=== PATIENT | male | born 1965 | race American Indian/Alaskan Native ===

== ENCOUNTER 2017-03-19 14:44 | Inpatient (IN) | payer OTHER ==
[2017-03-19 15:32] LABS: Basophils % (Auto) 0.4 % (0.0-1.8); Eosinophils % (Auto) 0.4 % (0.0-4.3); Hematocrit 39.9 % (35.5-45.6); Hemoglobin 13.2 gm/dl (11.8-15.2); Mean Corpuscular HGB Conc 33 % (32-34); Mean Corpuscular Hemoglobin 29 pg (28-32); Mean Corpuscular Volume 88 fl (84-94); Platelet Count 250 K/mm3 (140-440); Red Blood Count 4.51 M/mm3 (3.65-5.03); White Blood Count 9.4 K/mm3 (4.5-11.0)
[2017-03-19 15:37] LABS: Anion Gap 21 mmol/L; BUN/Creatinine Ratio 9.09; Blood Urea Nitrogen 10 mg/dL (9-20); Calcium 8.9 mg/dL (8.4-10.2); Carbon Dioxide 23 mmol/L (22-30); Chloride 101.4 mmol/L (98-107); Glucose 112 mg/dL (75-100); Potassium 4.3 mmol/L (3.6-5.0); Sodium 141 mmol/L (137-145)
[2017-03-19] MEDS ORDERED: TORADOL IV ONE ×2 (21:49→21:50)
[2017-03-19] MEDS ORDERED: NACL 0.9% 1000 ML 1,000 ML IV ONE (21:50)
[2017-03-19] MEDS ORDERED: MORPHINE IV ONE (21:52)
[2017-03-19] MEDS ORDERED: ZOFRAN IV ONE (21:53)
--- NOTE | 2017-03-19 23:05 | XRay Report ---
FINAL REPORT EXAM: XR CHEST ROUTINE 2V HISTORY: CHEST PAIN TECHNIQUE: PA and lateral chest radiographs PRIORS: None. FINDINGS: No mediastinal shift. Cardiac silhouette is not enlarged. No pneumothorax. Left lower lung airspace disease with small effusion. Linear right basilar atelectasis/scarring. No acute skeletal finding. IMPRESSION: Left lower lung airspace disease with small effusion. PA and lateral chest radiographic follow-up to resolution is recommended.
[2017-03-19 23:20] LABS: ISTAT Base Excess -2; ISTAT HCO3 22.6; ISTAT PCO2 36.5 (35-45); ISTAT PO2 62 (80-105); ISTAT SO2 92; ISTAT TCO2 24
--- NOTE | 2017-03-19 23:23 | Emergency Department Report ---
ED Chest Pain HPI - General Chief Complaint: Chest Pain Stated Complaint: CHEST PAIN Time Seen by Provider: 03/19/17 21:27 Source: patient Mode of arrival: Ambulatory Limitations: No Limitations - History of Present Illness Initial Comments: 52-year-old male with no past medical history presents to the ED complaining of chest pain. The pain started 1 day prior to arrival. Patient states he was doing work that required exertion and started having sharp chest pain one hour after. Patient states pain is left sternal area. Pain is intermittent and non radiating. Worse with movement and exertion, improves with rest. Pain is not reproducible. Patient denies: Fever/chills, abdominal pain, nausea/vomiting/ diarrhea, lotion E edema. Patient is a history of GA, history of PE/DVT. MD Complaint: chest pain -: Gradual, days(s) (1) Onset: during rest Pain Location: substernal Pain Radiation: none Severity: moderate Severity scale (0 -10): 8 Quality: tightness Consistency: intermittent Improves With: nothing Worsens With: exertion, inspiration re: denies: nausea, vomting Other Symptoms: denies: cough, fever, rash, acid taste in mouth, palpitations - Related Data Home Medications Medication Instructions Recorded Confirmed Last Taken No Known Home Medications [No 03/19/17 03/19/17 Unknown Reported Home Medications] Allergies Allergy/AdvReac Type Severity Reaction Status Date / Time No Known Allergies Allergy Verified 03/20/17 00:14 Heart Score - HEART Score History: Moderately suspicious EKG: Non-specific Age: 45-65 Risk factors: No known risk factors Troponin: < normal limit HEART Score: 3 - Critical Actions Critical Actions: 0-3 pts:0.9-1.7%risk of adverse cardiac event.Candidate for discharge ED Review of Systems ROS: Stated complaint: CHEST PAIN Other details as noted in HPI Constitutional: denies: chills, fever Eyes: denies: eye pain, eye discharge, vision change ENT: denies: ear pain, throat pain Respiratory: denies: cough, shortness of breath, wheezing Cardiovascular: chest pain. denies: palpitations Endocrine: no symptoms reported Gastrointestinal: denies: abdominal pain, nausea, diarrhea Genitourinary: denies: urgency, dysuria Musculoskeletal: denies: back pain, joint swelling, arthralgia Skin: denies: rash, lesions Neurological: denies: headache, weakness, paresthesias Psychiatric: denies: anxiety, depression Hematological/Lymphatic: denies: easy bleeding, easy bruising ED Past Medical Hx - Past Medical History Previous Medical History?: No - Surgical History Past Surgical History?: No - Social History Smoking Status: Never Smoker Substance Use Type: None - Medications Home Medications: Home Medications Medication Instructions Recorded Confirmed Last Taken Type No Known Home Medications [No 03/19/17 03/19/17 Unknown History Reported Home Medications] ED Physical Exam - General Limitations: No Limitations General appearance: alert, in no apparent distress - Head Head exam: Present: atraumatic, normocephalic - Eye Eye exam: Present: normal appearance - ENT ENT exam: Present: mucous membranes moist - Neck Neck exam: Present: normal inspection - Respiratory Respiratory exam: Present: normal lung sounds bilaterally. Absent: respiratory distress - Cardiovascular Cardiovascular Exam: Present: regular rate, normal rhythm. Absent: systolic murmur, diastolic murmur, rubs, gallop - GI/Abdominal GI/Abdominal exam: Present: soft, normal bowel sounds - Rectal Rectal exam: Present: deferred - Extremities Exam Extremities exam: Present: normal inspection, full ROM. Absent: calf tenderness - Back Exam Back exam: Present: normal inspection - Neurological Exam Neurological exam: Present: alert, oriented X3 - Psychiatric Psychiatric exam: Present: normal affect, normal mood - Skin Skin exam: Present: warm, dry, intact, normal color. Absent: rash ED Course Vital Signs 03/19/17 03/19/17 14:59 19:47 Temperature 99.6 F 97.8 F Pulse Rate 111 H 104 H Respiratory 20 22 Rate Blood Pressure 140/93 Blood Pressure 159/93 [Left] O2 Sat by Pulse 93 90 Oximetry IAN score - Ian Score Age > 65: (0) No Aspirin use within the Past 7 Days: (0) No 3 or more CAD Risk Factors: (0) No 2 or more Angina events in past 24 hrs: (0) No Known CAD with more than 50% Stenosis: (0) No Elevated Cardiac Markers: (0) No ST Deviation Greater than 0.5mm: (0) No IAN Score: 0 ED Medical Decision Making - Lab Data Result diagrams: 03/19/17 15:06 03/19/17 15:06 - EKG Data -: EKG Interpreted by Ok EKG shows normal: sinus rhythm (111), axis (normal ) Rate: tachycardia - Radiology Data Radiology results: report reviewed, image reviewed CTA chest: There is small emboli in the proximal and mid branches of the pulmonary arteries bilaterally. There is no large central or saddle emboli. Bilateral pulmonary emboli. Bilateral lower lobe infiltrates, worse on the left. There is no thoracic aortic aneurysm or dissection. There are probable liver hemangiomas. Dr Ara JURADO - Medical Decision Making 52-year-old male with no past medical history is presenting to the emergency department complaining of chest pain. While in ED pt became oxygen dependant with oxygen saturation of 85%, increased to 98% on 2l nc. PatienT CT scan consistent with PE, and left lower lobe pneumonia. I will start him on heparin gtt and IV antibiotics, pt agrees to plan - Differential Diagnosis dissection, ACS, pneumothorax Critical Care Time: Yes Critical care attestation.: If time is entered above; I have spent that time in minutes in the direct care of this critically ill patient, excluding procedure time. Critical Care Time: 35 ED Disposition Clinical Impression: Chest pain, Pulmonary emboli Disposition: OP ADMIT IP TO THIS HOSP Is pt being admited?: Yes Does the pt Need Aspirin: No Condition: Stable Instructions: Chest Pain (ED) Referrals: PRIMARY CARE, [Primary Care Provider] - 3-5 Days
[2017-03-19] MEDS ORDERED: NACL ONE (23:47)
--- NOTE | 2017-03-20 02:16 | Cat Scan Report ---
FINAL REPORT PROCEDURE: CT ANGIO CHEST TECHNIQUE: Computerized axial tomographic angiography of the chest and pulmonary arteries was performed after the IV injection of iodinated nonionic contrast. The image data was postprocessed using maximum intensity projection (MIP) and 2-dimensional multiplanar reformatted (MPR) techniques. The examination is specifically tailored to the evaluation of the pulmonary arteries per clinical request. HISTORY: Short of breath 786.09, chest pain 786.50, left chest pain with sob COMPARISON: No prior studies are available for comparison. FINDINGS: Heart and pericardium: Normal. Thoracic aorta: Normal. Pulmonary vasculature: There are small emboli in the proximal and mid branches of the pulmonary arteries bilaterally. There is no large central or saddle embolus.. Lymph nodes: No enlarged thoracic lymph nodes. Lungs: There are infiltrates at the lung bases greater on the left. Lungs are well-expanded. There are no effusions.. Pleural space: There are no pneumothoraces.. Musculoskeletal structures: No significant abnormality. Upper abdominal structures: There is a partially imaged enhancing mass in the right lobe of the liver measuring 18 millimeters suggesting hemangioma. There is a larger mass in the left lobe of the liver measuring up to 5 centimeters in diameter demonstrating peripheral enhancement also suggesting hemangioma.. IMPRESSION: Bilateral pulmonary emboli. Bilateral lower lobe infiltrates, worse on the left. There is no thoracic aortic aneurysm or dissection. There are probable liver hemangiomas. Nurse Chester Thompson was notified of these critical findings by telephone at 1:57 a.m. Eastern time. .
[2017-03-20] MEDS ORDERED: LEVAQUIN 750MG/150ML 750 MG/150 ML BAG IV ONE (02:23)
[2017-03-20] MEDS ORDERED: ZOFRAN IV PRN (02:31)
[2017-03-20] MEDS ORDERED: RESTORIL PO PRN (02:47)
[2017-03-20] MEDS: HEPARIN/ 0.45% NACL-25,000 UNIT/500 ML 25,000 UNIT/500 ML BAG IV SCH (02:50)
[2017-03-20 03:33] LABS: Hematocrit 37.6 % (35.5-45.6); Hemoglobin 12.3 gm/dl (11.8-15.2)
[2017-03-20 03:43] LABS: INR 1.12 (0.87-1.13)
[2017-03-20 03:44] LABS: Partial Thromboplastin Time 37.9 Sec. (24.2-36.6)
--- NOTE | 2017-03-20 07:30 | History and Physical Report ---
History of Present Illness Date of examination: 03/20/17 Date of admission: 03/20/17 02:29 Chief complaint: Chief complaint is chest pain, other complaint include shortness of breath History of present illness: History of present illness on, patient is a 52-year-old male who started having precordial chest pain about 24 hours prior to presentation, pain does not radiate and is associated with shortness of breath and worse with movement, there is no history of nausea vomiting and no history of cough fever or chills but there is history of dizziness Past History Past Surgical History: No surgical history Social history: no significant social history Family history: no significant family history Medications and Allergies Allergies Allergy/AdvReac Type Severity Reaction Status Date / Time No Known Allergies Allergy Verified 03/20/17 00:14 Home Medications Medication Instructions Recorded Confirmed Last Taken Type No Known Home Medications [No 03/19/17 03/19/17 Unknown History Reported Home Medications] Active Meds: Active Medications Heparin Sodium/Sodium Chloride (Heparin/ 0.45% Nacl-25,000 Unit/500 Ml) 25,000 unit in 500 mls @ 30 mls/hr IV TITR MILAGROS; 1,500 UNITS/HR PRN Reason: Protocol Last Admin: 03/20/17 02:50 Dose: 1,500 units/hr, 30 mls/hr Morphine Sulfate (Morphine) 2 mg IV Q3H PRN PRN Reason: Pain, Moderate (4-6) Ondansetron HCl (Zofran) 4 mg IV Q6H PRN PRN Reason: NAUSEA, VOMITING Temazepam (Restoril) 15 mg PO QHS PRN PRN Reason: Insomnia Warfarin Sodium (Coumadin) 5 mg PO QDAY@1700 [facility] PRN Reason: Protocol Warfarin Sodium (Coumadin Pharmacy To Dose) 1 each PO PKCONSULT [facility] PRN Reason: Protocol Review of Systems Constitutional: no weight loss, no weight gain, no fever, no chills, no sweats, no night sweats, no anorexia, no fatigue, no weakness, no malaise, no lethargy, no poor appetite, no daytime sleepiness, no chronic pain Eyes: bilateral: other (NO BILATERAL EYE SYMPTOMS) Ears, nose, mouth and throat: no ear pain, no ear discharge, no decreased hearing, no nose pain, no nasal congestion, no nasal discharge, no sinus pressure, no bleeding gums, no dental pain, no mouth pain, no dysphagia, no hoarseness, no sore throat, no swelling in mouth, no post-nasal drip, no headache, no vertigo, no pain front of neck Cardiovascular: chest pain, lightheadedness, shortness of breath, no palpitations, no rapid/irregular heart beat, no edema, no syncope, no paroxysmal nocturnal dyspnea, no claudication, no phlebitis, no high blood pressure Genitourinary Male: no dysuria, no hematuria, no flank pain, no discharge, no urinary frequency, no urinary hesitancy, no nocturia, no erectile dysfunction, no decreased libido, no testicular pain, no testicular lump, no difficulties fathering child, no polyuria Rectal: no pain, no itching, no flatulence Musculoskeletal: no neck stiffness, no neck pain, no shooting arm pain, no arm numbness/tingling, no low back pain, no shooting leg pain, no leg numbness/ tingling, no morning stiffness, no muscle weakness, no muscle cramps, no myalgias, no limitation of motion, no fractures, no loss of height, no prior amputations Integumentary: no rash, no pruritis, no redness, no sores, no darkening of skin , no depigmentation, no hirsutism Neurological: no weakness, no seizures, no syncope, no tremors, no ataxia, no lack of coordination, no headaches, no migraines, no convulsions, no change in speech, no change in mentation, no double vision, no loss of vision Psychiatric: no anxiety, no memory loss, no insomnia, no hypersomnia, no change in appetite, no change in libido, no difficulties concentrating, no confusion, no irritability, no sadness/tearfullness, no mood swings Endocrine: no cold intolerance, no heat intolerance, no polyphagia, no excessive thirst, no polyuria, no nocturia, no deepening of the voice Hematologic/Lymphatic: no easy bruising, no easy bleeding, no thrombophilia Allergic/Immunologic: no urticaria, no allergic rhinitis, no persistent infections Exam - Constitutional Vitals: Temp Pulse Resp BP Pulse Ox 97.7 F 88 18 125/71 95 03/20/17 05:00 03/20/17 05:00 03/20/17 05:00 03/20/17 05:00 03/20/17 05:00 General appearance: Present: no acute distress - EENT Eyes: Present: PERRL, EOM intact ENT: hearing intact, clear oral mucosa, dentition normal - Neck Neck: Present: supple, normal ROM - Respiratory Respiratory effort: normal - Cardiovascular Heart Sounds: Present: S1 & S2, gallop. Absent: systolic murmur, diastolic murmur, rub, click - Extremities Extremities: no ischemia, No edema - Abdominal General gastrointestinal: Present: soft, non-tender, non-distended. Absent: tender, distended, rigid, hepatomegaly, splenomegaly Male genitourinary: Present: deferred - Rectal Rectal Exam: deferred - Integumentary Integumentary: Present: clear, warm, dry, normal turgor. Absent: jaundice, clammy - Musculoskeletal Musculoskeletal: strength equal bilaterally - Psychiatric Psychiatric: appropriate mood/affect - Neurologic Neurologic: CNII-XII intact Results - Labs CBC & Chem 7: 03/20/17 02:58 03/19/17 15:06 Labs: Laboratory Last Values WBC 9.4 K/mm3 (4.5-11.0) 03/19/17 15:06 RBC 4.51 M/mm3 (3.65-5.03) 03/19/17 15:06 Hgb 12.3 gm/dl (11.8-15.2) 03/20/17 02:58 Hct 37.6 % (35.5-45.6) 03/20/17 02:58 MCV 88 fl (84-94) 03/19/17 15:06 MCH 29 pg (28-32) 03/19/17 15:06 MCHC 33 % (32-34) 03/19/17 15:06 RDW 14.0 % (13.2-15.2) 03/19/17 15:06 Plt Count 219 K/mm3 (140-440) 03/20/17 02:58 Lymph % (Auto) 15.4 % (13.4-35.0) 03/19/17 15:06 [place] % (Auto) 7.2 % (0.0-7.3) 03/19/17 15:06 Eos % (Auto) 0.4 % (0.0-4.3) 03/19/17 15:06 Baso % (Auto) 0.4 % (0.0-1.8) 03/19/17 15:06 Lymph # 1.4 K/mm3 (1.2-5.4) 03/19/17 15:06 [place] # 0.7 K/mm3 (0.0-0.8) 03/19/17 15:06 Eos # 0.0 K/mm3 (0.0-0.4) 03/19/17 15:06 Baso # 0.0 K/mm3 (0.0-0.1) 03/19/17 15:06 Seg Neutrophils % 76.6 % (40.0-70.0) H 03/19/17 15:06 Seg Neutrophils # 7.2 K/mm3 (1.8-7.7) 03/19/17 15:06 PT 15.0 Sec. (12.2-14.9) H 03/20/17 02:58 INR 1.12 (0.87-1.13) 03/20/17 02:58 APTT 37.9 Sec. (24.2-36.6) H 03/20/17 02:58 D-Dimer 1083.62 ng/mlDDU (0-234) H 03/19/17 22:40 POC ABG pH 7.400 (7.35-7.45) 03/19/17 23:07 POC ABG pCO2 36.5 (35-45) 03/19/17 23:07 POC ABG pO2 62 (80-105) L 03/19/17 23:07 POC ABG HCO3 22.6 03/19/17 23:07 POC ABG Total CO2 24 03/19/17 23:07 POC ABG O2 Sat 92 03/19/17 23:07 POC ABG Base Excess -2 03/19/17 23:07 FiO2 28 % 03/19/17 23:07 Sodium 141 mmol/L (137-145) 03/19/17 15:06 Potassium 4.3 mmol/L (3.6-5.0) 03/19/17 15:06 Chloride 101.4 mmol/L (98-107) 03/19/17 15:06 Carbon Dioxide 23 mmol/L (22-30) 03/19/17 15:06 Anion Gap 21 mmol/L 03/19/17 15:06 BUN 10 mg/dL (9-20) 03/19/17 15:06 Creatinine 1.1 mg/dL (0.8-1.5) 03/19/17 15:06 Estimated GFR > 60 ml/min 03/19/17 15:06 BUN/Creatinine Ratio 9.09 % 03/19/17 15:06 Glucose 112 mg/dL (75-100) H 03/19/17 15:06 Lactic Acid 0.80 mmol/L (0.7-2.0) 03/20/17 02:58 Calcium 8.9 mg/dL (8.4-10.2) 03/19/17 15:06 Troponin T < 0.010 ng/mL (0.00-0.029) 03/19/17 20:45 NT-Pro-B Natriuret Pep 21.08 pg/mL (0-900) 03/20/17 00:31 Assessment and Plan - Patient Problems (1) Chest pain Current Visit: Yes Status: Acute Qualifiers: Chest pain type: C Ischemic chest pain type: I (2) Pulmonary emboli Current Visit: Yes Status: Acute Qualifiers: Pulmonary embolism type: P Chronicity: C Acute cor pulmonale presence: A Plan to address problem: Patient will be admitted to medical floor on telemetry and will continue IV heparin drip started in the emergency room, patient will also be on Coumadin 5 mg by mouth daily which will be started after the heparin drip was started been started. Patient will have cardiac enzymes checked every 6 hours 2 more levels and will be on IV morphine 2 mg every 2 hours as needed for pain and IV Zofran 4 mg every 6 hours for nausea vomiting. Patient will have PT/INR checked every morning and will be on Tylenol by mouth every 4 hours for fever or headache, patient will be on oxygen by nasal cannula 2 L/m
--- NOTE | 2017-03-20 11:20 | Event Note ---
Date: 03/20/17 Patient is 52 yo with chest pain or shortness of breath. CT chest showed bilateral pulmonary embolism. He has been started on heparin drip and Coumadin. I have seen and examined him today. Consult pulmonology. Obtain echocardiogram
[2017-03-20 11:50] LABS: INR 1.06 (0.87-1.13)
--- NOTE | 2017-03-20 16:12 | Admit Criteria Form ---
Admission Criteria Documentation: PULMONARY EMBOLISM Clinical Indications for Admission to Inpatient Care (Place 'X' for any and all applicable criteria): Admission is indicated for 1 or more of the following(1)(2)(3)(4)(5)(6)(7) [ ]I. Hypoxemia [X ]II. Vital sign abnormality (8) indicated by ALL of the following: [X ]a) Vital sign findings not as expected for chronic patient condition or baseline (eg, intentionally low, blood pressure in heart failure) [ X]b) Vital sign abnormality as indicated by 1 or more of the following [ X]l) Tachycardia [ ]ll) Hypotension [ ]lll) Orthostatic vital sign changes [ ]III. History of cancer [ ]IV. History of chronic cardiopulmonary disease (eg. CHF, coronary artery disease, COPD, cor pulmonale) [ ]V. Cardiac arrhythmias of intermediate concern [ ]. Right ventricular dysfunction (eg, by echocardiogram) [ ]VII. Positive cardiac biomarker (eg, troponin T or I > 0.1 ng/mL (mcg/L), highly sensitive troponin I assay greater than 0.014 ng/mL (mcg/L), BNP or NT proBNP > assay threshold)(8 )(10)(11) [ ]VIII. Need for IV narcotics (eg, to treat dyspnea) 1 or more of following: [ ]a) Bleeding before anticoagulation [ ]b) Recent surgery (eg, within 3 months) that increases risk of catastrophic bleeding (eg, spinal surgery, intracranial surgery, cardiovascular surgery) [ ]c) Recent GI bleeding (eg, within 3 months) or known increased risk of GI bleed (eg,esophageal varices, current ulcer) [ ]d) Recent (eg, within 3 months) ischemic stroke [ ]e) History of intracranial bleeding (eg, hemorrhagic stroke) [ ]f) History of active bleeding when anticoagulated [ ]g) Active substance abuse [ ]h) Other risk factor thought to place patient at high risk such that ability to rapidly reverse reversal agent) [ ]X. Documented extensive thrombosis (eg, clot in vena cava or above iliofemoral bifurcation) [ ]Xl. Thrombolysis (eg, catheter-directed) or pharmacomechanical thrombectomy needed[A][B](8) [ ]XIl. Vena cava filter placement needed (eg, unable to anticoagulate)[C](8) [ ]Xlll. with delivery planned (eg, 37 or more weeks' gestation)(14 ) [ ]XlV. Limb-threatening thrombosis (eg, phlegmasia cerula dolens) [ ]XV. Embolism while on anti-coagulation [ ]XVl. Contraindication to outpatient use of medication with rapid anticoagulation effect as indicated by ALL of the following: [ ] a) Contraindication to use of [id number]-[id number]-[id number] heparin[E][F ] indicated by 1 or more of the following(16): [ ] i) Documented current or history of heparin-induced thrombocytopenia(15) [ ] ii) Severe thrombocytopenia (eg, platelet count less than 50 ,000/mm3 (50 x109/L)) [ ] iii) Allergy to heparin, aug-zjnutkxey-uozefp heparin, or product component [ ] iv) Renal failure (creatinine clearance less than 30 mL/min/ 1.73m2 (0.50 mL/sec/1.73m2) or on dialysis) [ ] v) Need for neuraxial anesthesia or spinal puncture anticipated [ ] vi) Inability to manage self-injection (eg. By patient, caregiver, or visiting nurse) [ ] b) Contraindication to use of fondaparinux indicated by 1 or more of the following: [ ] i) Documented current or history of heparin-induced thrombocytopenia (15) [ ] ii) Severe thrombocytopenia (eg, platelet count less than 50 ,000/mm3 (50 x109/L)) [ ] iii) Allergy to fondaparinux, related drugs, or product components [ ] iv) Renal failure (creatinine clearance less than 30 mL/min/ 1.73m2 (0.50 mL/sec/1.73m2) or on dialysis) [ ] v) [ ] vi) Liver disease with coagulopathy (eg, elevated INR due to liver disease) [ ] vii) Mechanical heart valve [ ] viii) Need for neuraxial anesthesia or spinal puncture anticipated [ ] xi) Inability to manage self-injection (eg, by patient, caregiver, or visiting nurse) [ ] c) Contraindication to use of an oral direct thrombin inhibitor (eg, dabigatran) or an oral coagulation factor Xa inhibitor (eg, rivaroxaban, apixaban)[E][F] indicated by 1 or more of the following(17)(18): [ ] i) Severe thrombocytopenia (eg, platelet count less than 50, 000/mm3 (50 x109/L)) [ ] ii) Allergy to medication or product components x109/L)) [ ] iii) Renal failure (creatinine clearance less than 30 mL/min /1.73m2 (0.50 mL/sec/1.73m2) or on dialysis) [ ] iv) [ ] v) Liver disease with coagulopathy (eg, elevated INR due to liver disease) [ ] vi) Mechanical heart valve [ ] vii) Need for neuraxial anesthesia or spinal puncture anticipated [ ]XVll. Inpatient admission required rather than observation care (Also use Pulmonary Embolism: Observation Care guideline as appropriate) because of ANY ONE of the following: [ ] a) Significant autoimmune (thrombocytopenia) or coagulopathic reaction occurs in response to anticoagulation [ ] b) Respiratory symptoms (eg, tachypnea, dyspnea) that are severe or persistent [ ] c) Other condition, treatment, or monitoring requiring inpatient admission The original [employer] content created by [employer] has been revised. The portions of the content which have been revised are identified through the use of italic text or in bold, and [facility] has neither reviewed nor approved the modified material. All other unmodified content is copyright [employer]. Please see references footnoted in the original [facility] 2017 Admission Criteria Met: Yes
[2017-03-20] MEDS: MORPHINE IV PRN (21:46)
[2017-03-21 03:19] LABS: INR 0.99 (0.87-1.13)
--- NOTE | 2017-03-21 09:25 | Consultation ---
History of Present Illness Consult date: 03/21/17 Requesting physician: SARAH COATS Reason for consult: pulmonary embolism History of present illness: 52 y/o male, admitted with chest pain. Found to have bilateral subsegmental PE' s. Pulmonary consulted secondary to this. Patient states that he has never had PE or VTE before. He was just informed by his Mother that his maternal uncle was recently diagnosed with pE as well. He currently feels better. Maintains on Heparin Drip. No family at bedside. Does drive the majority of the day. Dopplers negative for DVt. Past History Past Surgical History: No surgical history Social history: no significant social history Family history: no significant family history Medications and Allergies Allergies Allergy/AdvReac Type Severity Reaction Status Date / Time No Known Allergies Allergy Verified 03/20/17 00:14 Home Medications Medication Instructions Recorded Confirmed Last Taken Type No Known Home Medications [No 03/19/17 03/19/17 Unknown History Reported Home Medications] Active Meds: Active Medications Heparin Sodium/Sodium Chloride (Heparin/ 0.45% Nacl-25,000 Unit/500 Ml) 25,000 unit in 500 mls @ 30 mls/hr IV TITR [facility]; 1,500 UNITS/HR PRN Reason: Protocol Last Titration: 03/21/17 05:50 Dose: 1,800 units/hr, 36 mls/hr Morphine Sulfate (Morphine) 2 mg IV Q3H PRN PRN Reason: Pain, Moderate (4-6) Last Admin: 03/20/17 21:46 Dose: 2 mg Ondansetron HCl (Zofran) 4 mg IV Q6H PRN PRN Reason: NAUSEA, VOMITING Temazepam (Restoril) 15 mg PO QHS PRN PRN Reason: Insomnia Warfarin Sodium (Coumadin) 7.5 mg PO QDAY@1700 [facility] PRN Reason: Protocol Warfarin Sodium (Coumadin Pharmacy To Dose) 1 each PO PKCONSULT [facility] PRN Reason: Protocol Review of Systems All systems: negative Physical Examination Vital signs: Vital Signs Temp Pulse Resp BP Pulse Ox 99.6 F 111 H 20 140/93 93 03/19/17 14:59 03/19/17 14:59 03/19/17 14:59 03/19/17 14:59 03/19/17 14:59 General appearance: no acute distress, alert Eyes: non-icteric ENT: oropharynx moist Neck: supple Effort: normal Ascultation: Bilateral: clear Percussion: Bilateral: not dull Tactile fremitus: Bilateral: normal Cardiovascular: regular rate and rhythm Gastrointestinal: normoactive bowel sounds Integumentary: normal Extremities: no edema Results - Laboratory Findings CBC and BMP: 03/20/17 02:58 03/19/17 15:06 ABG POC ABG pH 7.400 (7.35-7.45) 03/19/17 23:07 POC ABG pCO2 36.5 (35-45) 03/19/17 23:07 POC ABG pO2 62 (80-105) L 03/19/17 23:07 POC ABG HCO3 22.6 03/19/17 23:07 POC ABG Total CO2 24 03/19/17 23:07 POC ABG O2 Sat 92 03/19/17 23:07 PT/INR, D-dimer PT 13.6 Sec. (12.2-14.9) 03/21/17 02:37 INR 0.99 (0.87-1.13) 03/21/17 02:37 D-Dimer 1083.62 ng/mlDDU (0-234) H 03/19/17 22:40 Abnormal lab findings: Abnormal Labs 03/20/17 03/20/17 03/20/17 02:58 11:13 23:22 PT 15.0 H APTT 37.9 H Heparin Anti-Xa Level 0.12 L POC Glucose 114 H 03/21/17 02:37 PT APTT Heparin Anti-Xa Level 0.28 L POC Glucose - Diagnostic Findings CT scan - chest: image reviewed (small bilateral PE's) Assessment and Plan 52 y/o male admitted with PE 1. Agree with Heparin Drip 2. Doubt he is a candidate for EKOS therapy given size of PE and lack of right heart strain but will ask Vascular to see. 3. Hold on PO anticoagulation until evaluated by Vascular.
--- NOTE | 2017-03-21 09:25 | Vascular Lab Report ---
LOWER EXTREMITY VENOUS DUPLEX: REASON FOR EXAM: Pulmonary embolism. COMMENTS ON THE RIGHT: All veins visualized are freely compressible without evidence of internal echogenicity. Flow is spontaneous and phasic throughout. COMMENTS ON THE LEFT: All veins visualized are freely compressible without evidence of internal echogenicity. Flow is spontaneous and phasic throughout. IMPRESSION: No evidence of acute or chronic deep venous thrombosis in either lower extremity.
--- NOTE | 2017-03-21 11:26 | Progress Note ---
Assessment and Plan Assessment and plan: Bilateral PEs. Patient with Doppler studies negative for DVT. Continue anticoagulation. Pulmonary following. Vascular surgery consultation pending. Acute hypoxic respiratory failure. Continue O2/supportive care. History Interval history: No new issues overnight. Hospitalist Physical - Constitutional Vitals: Temp Pulse Resp BP Pulse Ox 98.6 F 86 18 127/76 95 03/21/17 08:42 03/21/17 08:42 03/21/17 08:42 03/21/17 08:42 03/21/17 08:42 General appearance: Present: no acute distress - EENT Eyes: Present: PERRL, EOM intact ENT: hearing intact, clear oral mucosa, dentition normal - Neck Neck: Present: supple, normal ROM - Respiratory Respiratory effort: normal Respiratory: bilateral: CTA - Cardiovascular Rhythm: regular Heart Sounds: Present: S1 & S2. Absent: gallop, rub - Extremities Extremities: no ischemia, No edema, Full ROM - Abdominal General gastrointestinal: soft, non-tender, non-distended, normal bowel sounds - Integumentary Integumentary: Present: clear, warm, dry - Neurologic Neurologic: CNII-XII intact, moves all extremities Results - Labs CBC & Chem 7: 03/20/17 02:58 03/19/17 15:06 Labs: Laboratory Last Values WBC 9.4 K/mm3 (4.5-11.0) 03/19/17 15:06 RBC 4.51 M/mm3 (3.65-5.03) 03/19/17 15:06 Hgb 12.3 gm/dl (11.8-15.2) 03/20/17 02:58 Hct 37.6 % (35.5-45.6) 03/20/17 02:58 MCV 88 fl (84-94) 03/19/17 15:06 MCH 29 pg (28-32) 03/19/17 15:06 MCHC 33 % (32-34) 03/19/17 15:06 RDW 14.0 % (13.2-15.2) 03/19/17 15:06 Plt Count 219 K/mm3 (140-440) 03/20/17 02:58 Lymph % (Auto) 15.4 % (13.4-35.0) 03/19/17 15:06 [place] % (Auto) 7.2 % (0.0-7.3) 03/19/17 15:06 Eos % (Auto) 0.4 % (0.0-4.3) 03/19/17 15:06 Baso % (Auto) 0.4 % (0.0-1.8) 03/19/17 15:06 Lymph # 1.4 K/mm3 (1.2-5.4) 03/19/17 15:06 [place] # 0.7 K/mm3 (0.0-0.8) 03/19/17 15:06 Eos # 0.0 K/mm3 (0.0-0.4) 03/19/17 15:06 Baso # 0.0 K/mm3 (0.0-0.1) 03/19/17 15:06 Seg Neutrophils % 76.6 % (40.0-70.0) H 03/19/17 15:06 Seg Neutrophils # 7.2 K/mm3 (1.8-7.7) 03/19/17 15:06 PT 13.6 Sec. (12.2-14.9) 03/21/17 02:37 INR 0.99 (0.87-1.13) 03/21/17 02:37 APTT 37.9 Sec. (24.2-36.6) H 03/20/17 02:58 D-Dimer 1083.62 ng/mlDDU (0-234) H 03/19/17 22:40 Heparin Anti-Xa Level 0.30 U.I./ml (0.3-0.7) 03/21/17 05:18 POC ABG pH 7.400 (7.35-7.45) 03/19/17 23:07 POC ABG pCO2 36.5 (35-45) 03/19/17 23:07 POC ABG pO2 62 (80-105) L 03/19/17 23:07 POC ABG HCO3 22.6 03/19/17 23:07 POC ABG Total CO2 24 03/19/17 23:07 POC ABG O2 Sat 92 03/19/17 23:07 POC ABG Base Excess -2 03/19/17 23:07 FiO2 28 % 03/19/17 23:07 Sodium 141 mmol/L (137-145) 03/19/17 15:06 Potassium 4.3 mmol/L (3.6-5.0) 03/19/17 15:06 Chloride 101.4 mmol/L (98-107) 03/19/17 15:06 Carbon Dioxide 23 mmol/L (22-30) 03/19/17 15:06 Anion Gap 21 mmol/L 03/19/17 15:06 BUN 10 mg/dL (9-20) 03/19/17 15:06 Creatinine 1.1 mg/dL (0.8-1.5) 03/19/17 15:06 Estimated GFR > 60 ml/min 03/19/17 15:06 BUN/Creatinine Ratio 9.09 % 03/19/17 15:06 Glucose 112 mg/dL (75-100) H 03/19/17 15:06 POC Glucose 114 (70-105) H 03/20/17 23:22 Lactic Acid 0.80 mmol/L (0.7-2.0) 03/20/17 02:58 Calcium 8.9 mg/dL (8.4-10.2) 03/19/17 15:06 Troponin T < 0.010 ng/mL (0.00-0.029) 03/19/17 20:45 NT-Pro-B Natriuret Pep 21.08 pg/mL (0-900) 03/20/17 00:31
[2017-03-21] MEDS: HEPARIN/ 0.45% NACL-25,000 UNIT/500 ML 25,000 UNIT/500 ML BAG IV SCH (15:48)
[2017-03-21] MEDS: COUMADIN PO SCH (17:03)
--- NOTE | 2017-03-21 18:22 | Consultation ---
History of Present Illness - Reason for Consult Consult date: 03/21/17 Bilateral Pulmonary Emboli Requesting physician: ILIANA FRASER - History of Present Illness This Patient is a 52-year-old male that was admitted via the emergency room on 03/19/2017 due to chest pain. He had a CT scan of the chest. This revealed bilateral pulmonary emboli (small in the proximal and mid branches of the pulmonary arteries bilaterally) as well as bilateral lower lobe infiltrates. The patient was started on anticoagulation with a heparin drip and Coumadin. A Vascular surgery consult has been requested to evaluate for possible catheter directed thrombolytic therapy. The patient states he developed chest pain as well as severe left calf discomfort 2-3 days ago. He initially treated the chest pain with Motrin. The chest pain persisted and the patient sought medical care in the emergency room. He has no previous history of blood clots. He denies known trauma. 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 Past History Past Medical History: No medical history Past Surgical History: No surgical history Social history: single (has a girlfriend). denies: smoking Family history: other (he has an uncle who was recently diagnosed with a "blood clot" and currently in treatment.) Medications and Allergies Allergies Allergy/AdvReac Type Severity Reaction Status Date / Time No Known Allergies Allergy Verified 03/20/17 00:14 Home Medications Medication Instructions Recorded Confirmed Last Taken Type No Known Home Medications [No 03/19/17 03/19/17 Unknown History Reported Home Medications] Active Meds: Active Medications Heparin Sodium/Sodium Chloride (Heparin/ 0.45% Nacl-25,000 Unit/500 Ml) 25,000 unit in 500 mls @ 30 mls/hr IV TITR [facility]; 1,500 UNITS/HR PRN Reason: Protocol Last Admin: 03/21/17 15:48 Dose: 1,900 units/hr, 38 mls/hr Morphine Sulfate (Morphine) 2 mg IV Q3H PRN PRN Reason: Pain, Moderate (4-6) Last Admin: 03/20/17 21:46 Dose: 2 mg Ondansetron HCl (Zofran) 4 mg IV Q6H PRN PRN Reason: NAUSEA, VOMITING Temazepam (Restoril) 15 mg PO QHS PRN PRN Reason: Insomnia Warfarin Sodium (Coumadin) 7.5 mg PO QDAY@1700 [facility] PRN Reason: Protocol Last Admin: 03/21/17 17:03 Dose: 7.5 mg Warfarin Sodium (Coumadin Pharmacy To Dose) 1 each PO PKCONSULT [facility] PRN Reason: Protocol Review of Systems All systems: negative (all systems were reviewed and found to have no particular complaints. He specifically denies any known bleeding, change in bowel habits, nor weight loss.) Exam - Constitutional Vitals: Temp Pulse Resp BP Pulse Ox 98.6 F 86 18 127/76 98 03/21/17 08:42 03/21/17 08:42 03/21/17 08:42 03/21/17 08:42 03/21/17 10:00 General appearance: Present: no acute distress - EENT Eyes: Present: EOM intact ENT: hearing intact - Neck Neck: Present: supple - Respiratory Respiratory effort: normal (unlabored at rest on nasal cannula oxygen supplementation) - Extremities Extremities: no ischemia, No edema, normal temperature - Psychiatric Psychiatric: appropriate mood/affect, intact judgment & insight, cooperative - Neurologic Neurologic: no focal deficits Results - Labs CBC & Chem 7: 03/20/17 02:58 03/19/17 15:06 Labs: Abnormal lab results 03/20/17 03/21/17 03/21/17 Range/Units 23:22 02:37 11:54 Heparin Anti-Xa Level 0.28 L 0.26 L (0.3-0.7) U.I./ml POC Glucose 114 H (70-105) Assessment and Plan This patient presents to the emergency room with chest pain. His symptoms have gradually improved following admission. CT scan suggests he has bilateral pulmonary emboli. These images were reviewed. An echocardiogram does not suggest right heart failure. Agree with anticoagulation. Do not recommend catheter directed thrombolysis at this point. - Patient Problems (1) Bilateral pulmonary embolism Current Visit: Yes Status: Acute
[2017-03-22] MEDS: HEPARIN/ 0.45% NACL-25,000 UNIT/500 ML 25,000 UNIT/500 ML BAG IV SCH ×2 (03:19→16:39)
--- NOTE | 2017-03-22 09:02 | Progress Note ---
Assessment and Plan 52 y/o male admitted with PE 1. Agree with Heparin Drip, no on oral anticoagulation. Will need daily INR's. 2. Needs heme consult/ follow up for hypercoag work up 3. Coumadin could be managed by Primary or Heme 4. Wean FiO2 as tolerated. Will need walk test prior to discharge. Subjective Date of service: 03/22/17 Interval history: Appreciate Vascular surgery evaluating patient. Not a candidate for EKOS therapy. Patient remains on nasal cannula and stable. Heparin infusing and started coumadin last night. Objective Vital Signs - 12hr 03/21/17 03/22/17 03/22/17 21:49 00:00 03:00 Temperature 98.1 F Pulse Rate 88 Pulse Rate [ 89 Left Brachial] Respiratory 18 Rate Blood Pressure 130/79 [Right Arm] O2 Sat by Pulse 97 98 Oximetry 03/22/17 04:54 Temperature 97.8 F Pulse Rate Pulse Rate [ 86 Left Brachial] Respiratory 18 Rate Blood Pressure 126/74 [Right Arm] O2 Sat by Pulse 98 Oximetry Constitutional: no acute distress, alert Eyes: non-icteric ENT: oropharynx moist Neck: supple Effort: normal Ascultation: Bilateral: clear Percussion: Bilateral: not dull Tactile fremitus: Bilateral: normal Cardiovascular: regular rate and rhythm Gastrointestinal: normoactive bowel sounds Integumentary: normal Extremities: no edema CBC and BMP: 03/20/17 02:58 03/19/17 15:06 ABG, PT/INR, D-dimer: ABG POC ABG pH 7.400 (7.35-7.45) 03/19/17 23:07 POC ABG pCO2 36.5 (35-45) 03/19/17 23:07 POC ABG pO2 62 (80-105) L 03/19/17 23:07 POC ABG HCO3 22.6 03/19/17 23:07 POC ABG Total CO2 24 03/19/17 23:07 POC ABG O2 Sat 92 03/19/17 23:07 PT/INR, D-dimer PT 13.6 Sec. (12.2-14.9) 03/21/17 02:37 INR 0.99 (0.87-1.13) 03/21/17 02:37 D-Dimer 1083.62 ng/mlDDU (0-234) H 03/19/17 22:40 Abnormal lab findings: Abnormal Labs 03/20/17 03/20/17 03/20/17 02:58 11:13 23:22 PT 15.0 H APTT 37.9 H Heparin Anti-Xa Level 0.12 L POC Glucose 114 H 03/21/17 03/21/17 02:37 11:54 PT APTT Heparin Anti-Xa Level 0.28 L 0.26 L POC Glucose
[2017-03-22 09:04] LABS: Basophils % (Auto) 0.7 % (0.0-1.8); Eosinophils % (Auto) 3.3 % (0.0-4.3); Hematocrit 38.9 % (35.5-45.6); Hemoglobin 12.9 gm/dl (11.8-15.2); Mean Corpuscular HGB Conc 33 % (32-34); Mean Corpuscular Hemoglobin 29 pg (28-32); Mean Corpuscular Volume 88 fl (84-94); Platelet Count 296 K/mm3 (140-440); Red Blood Count 4.41 M/mm3 (3.65-5.03); Red Cell Distribution Width 14.1 % (13.2-15.2); White Blood Count 6.7 K/mm3 (4.5-11.0)
[2017-03-22 09:15] LABS: INR 1.02 (0.87-1.13)
[2017-03-22 09:18] LABS: Anion Gap 17 mmol/L; Blood Urea Nitrogen 12 mg/dL (9-20); Calcium 8.6 mg/dL (8.4-10.2); Carbon Dioxide 23 mmol/L (22-30); Chloride 103.6 mmol/L (98-107); Glucose 102 mg/dL (75-100); Sodium 140 mmol/L (137-145)
--- NOTE | 2017-03-22 13:00 | Progress Note ---
Assessment and Plan Assessment and plan: Bilateral PEs. Patient with Doppler studies negative for DVT. Continue IV anticoagulation. Start Coumadin. Pulmonary following. Vascular surgery consultation pending. Acute hypoxic respiratory failure. Continue O2/supportive care. History Interval history: No new issues overnight. Hospitalist Physical - Constitutional Vitals: Temp Pulse Resp BP Pulse Ox 97.8 F 82 18 118/57 95 03/22/17 08:00 03/22/17 08:00 03/22/17 08:00 03/22/17 08:00 03/22/17 09:24 General appearance: Present: no acute distress - EENT Eyes: Present: PERRL, EOM intact ENT: hearing intact, clear oral mucosa, dentition normal - Neck Neck: Present: supple, normal ROM - Respiratory Respiratory effort: normal Respiratory: bilateral: CTA - Cardiovascular Rhythm: regular Heart Sounds: Present: S1 & S2. Absent: gallop, rub - Extremities Extremities: no ischemia, No edema, Full ROM - Abdominal General gastrointestinal: soft, non-tender, non-distended, normal bowel sounds - Integumentary Integumentary: Present: clear, warm, dry - Neurologic Neurologic: CNII-XII intact, moves all extremities Results - Labs CBC & Chem 7: 03/22/17 08:31 03/22/17 08:31 Labs: Laboratory Last Values WBC 6.7 K/mm3 (4.5-11.0) 03/22/17 08:31 RBC 4.41 M/mm3 (3.65-5.03) 03/22/17 08:31 Hgb 12.9 gm/dl (11.8-15.2) 03/22/17 08:31 Hct 38.9 % (35.5-45.6) 03/22/17 08:31 MCV 88 fl (84-94) 03/22/17 08:31 MCH 29 pg (28-32) 03/22/17 08:31 MCHC 33 % (32-34) 03/22/17 08:31 RDW 14.1 % (13.2-15.2) 03/22/17 08:31 Plt Count 296 K/mm3 (140-440) 03/22/17 08:31 Lymph % (Auto) 19.3 % (13.4-35.0) 03/22/17 08:31 [place] % (Auto) 6.3 % (0.0-7.3) 03/22/17 08:31 Eos % (Auto) 3.3 % (0.0-4.3) 03/22/17 08:31 Baso % (Auto) 0.7 % (0.0-1.8) 03/22/17 08:31 Lymph # 1.3 K/mm3 (1.2-5.4) 03/22/17 08:31 [place] # 0.4 K/mm3 (0.0-0.8) 03/22/17 08:31 Eos # 0.2 K/mm3 (0.0-0.4) 03/22/17 08:31 Baso # 0.0 K/mm3 (0.0-0.1) 03/22/17 08:31 Seg Neutrophils % 70.4 % (40.0-70.0) H 03/22/17 08:31 Seg Neutrophils # 4.7 K/mm3 (1.8-7.7) 03/22/17 08:31 PT 13.9 Sec. (12.2-14.9) 03/22/17 08:31 INR 1.02 (0.87-1.13) 03/22/17 08:31 APTT 37.9 Sec. (24.2-36.6) H 03/20/17 02:58 D-Dimer 1083.62 ng/mlDDU (0-234) H 03/19/17 22:40 Heparin Anti-Xa Level 0.31 U.I./ml (0.3-0.7) 03/22/17 10:24 POC ABG pH 7.400 (7.35-7.45) 03/19/17 23:07 POC ABG pCO2 36.5 (35-45) 03/19/17 23:07 POC ABG pO2 62 (80-105) L 03/19/17 23:07 POC ABG HCO3 22.6 03/19/17 23:07 POC ABG Total CO2 24 03/19/17 23:07 POC ABG O2 Sat 92 03/19/17 23:07 POC ABG Base Excess -2 03/19/17 23:07 FiO2 28 % 03/19/17 23:07 Sodium 140 mmol/L (137-145) 03/22/17 08:31 Potassium 4.0 mmol/L (3.6-5.0) 03/22/17 08:31 Chloride 103.6 mmol/L (98-107) 03/22/17 08:31 Carbon Dioxide 23 mmol/L (22-30) 03/22/17 08:31 Anion Gap 17 mmol/L 03/22/17 08:31 BUN 12 mg/dL (9-20) 03/22/17 08:31 Creatinine 1.0 mg/dL (0.8-1.5) 03/22/17 08:31 Estimated GFR > 60 ml/min 03/22/17 08:31 BUN/Creatinine Ratio 12.00 % 03/22/17 08:31 Glucose 102 mg/dL (75-100) H 03/22/17 08:31 POC Glucose 114 (70-105) H 03/20/17 23:22 Lactic Acid 0.80 mmol/L (0.7-2.0) 03/20/17 02:58 Calcium 8.6 mg/dL (8.4-10.2) 03/22/17 08:31 Troponin T < 0.010 ng/mL (0.00-0.029) 03/19/17 20:45 NT-Pro-B Natriuret Pep 21.08 pg/mL (0-900) 03/20/17 00:31
[2017-03-22] MEDS: MORPHINE IV PRN (16:46)
[2017-03-22] MEDS: COUMADIN PO SCH (16:50)
[2017-03-23 01:19] LABS: INR 0.96 (0.87-1.13)
[2017-03-23] MEDS: HEPARIN/ 0.45% NACL-25,000 UNIT/500 ML 25,000 UNIT/500 ML BAG IV SCH ×3 (06:45→23:05)
--- NOTE | 2017-03-23 11:45 | Progress Note ---
Assessment and Plan Assessment and plan: Bilateral PEs. Patient with Doppler studies negative for DVT. Continue IV anticoagulation for bridge until INR therapeutic with Coumadin. Pulmonary following. Vascular surgery does not feel patient needs catheter directed thrombolysis at this point.. Acute hypoxic respiratory failure. Continue O2/supportive care. History Interval history: No new issues overnight. Hospitalist Physical - Constitutional Vitals: Temp Pulse Resp BP Pulse Ox 100.1 F H 90 20 114/57 96 03/23/17 09:34 03/23/17 09:34 03/23/17 09:34 03/23/17 09:34 03/23/17 09:34 General appearance: Present: no acute distress - EENT Eyes: Present: PERRL, EOM intact ENT: hearing intact, clear oral mucosa, dentition normal - Neck Neck: Present: supple, normal ROM - Respiratory Respiratory effort: normal Respiratory: bilateral: CTA - Cardiovascular Rhythm: regular Heart Sounds: Present: S1 & S2. Absent: gallop, rub - Extremities Extremities: no ischemia, No edema, Full ROM - Abdominal General gastrointestinal: soft, non-tender, non-distended, normal bowel sounds - Integumentary Integumentary: Present: clear, warm, dry - Neurologic Neurologic: CNII-XII intact, moves all extremities Results - Labs CBC & Chem 7: 03/22/17 08:31 03/22/17 08:31 Labs: Laboratory Last Values WBC 6.7 K/mm3 (4.5-11.0) 03/22/17 08:31 RBC 4.41 M/mm3 (3.65-5.03) 03/22/17 08:31 Hgb 12.9 gm/dl (11.8-15.2) 03/22/17 08:31 Hct 38.9 % (35.5-45.6) 03/22/17 08:31 MCV 88 fl (84-94) 03/22/17 08:31 MCH 29 pg (28-32) 03/22/17 08:31 MCHC 33 % (32-34) 03/22/17 08:31 RDW 14.1 % (13.2-15.2) 03/22/17 08:31 Plt Count 296 K/mm3 (140-440) 03/22/17 08:31 Lymph % (Auto) 19.3 % (13.4-35.0) 03/22/17 08:31 [place] % (Auto) 6.3 % (0.0-7.3) 03/22/17 08:31 Eos % (Auto) 3.3 % (0.0-4.3) 03/22/17 08:31 Baso % (Auto) 0.7 % (0.0-1.8) 03/22/17 08:31 Lymph # 1.3 K/mm3 (1.2-5.4) 03/22/17 08:31 [place] # 0.4 K/mm3 (0.0-0.8) 03/22/17 08:31 Eos # 0.2 K/mm3 (0.0-0.4) 03/22/17 08:31 Baso # 0.0 K/mm3 (0.0-0.1) 03/22/17 08:31 Seg Neutrophils % 70.4 % (40.0-70.0) H 03/22/17 08:31 Seg Neutrophils # 4.7 K/mm3 (1.8-7.7) 03/22/17 08:31 PT 13.3 Sec. (12.2-14.9) 03/23/17 00:54 INR 0.96 (0.87-1.13) 03/23/17 00:54 APTT 37.9 Sec. (24.2-36.6) H 03/20/17 02:58 D-Dimer 1083.62 ng/mlDDU (0-234) H 03/19/17 22:40 Heparin Anti-Xa Level 0.38 U.I./ml (0.3-0.7) 03/23/17 09:46 POC ABG pH 7.400 (7.35-7.45) 03/19/17 23:07 POC ABG pCO2 36.5 (35-45) 03/19/17 23:07 POC ABG pO2 62 (80-105) L 03/19/17 23:07 POC ABG HCO3 22.6 03/19/17 23:07 POC ABG Total CO2 24 03/19/17 23:07 POC ABG O2 Sat 92 03/19/17 23:07 POC ABG Base Excess -2 03/19/17 23:07 FiO2 28 % 03/19/17 23:07 Sodium 140 mmol/L (137-145) 03/22/17 08:31 Potassium 4.0 mmol/L (3.6-5.0) 03/22/17 08:31 Chloride 103.6 mmol/L (98-107) 03/22/17 08:31 Carbon Dioxide 23 mmol/L (22-30) 03/22/17 08:31 Anion Gap 17 mmol/L 03/22/17 08:31 BUN 12 mg/dL (9-20) 03/22/17 08:31 Creatinine 1.0 mg/dL (0.8-1.5) 03/22/17 08:31 Estimated GFR > 60 ml/min 03/22/17 08:31 BUN/Creatinine Ratio 12.00 % 03/22/17 08:31 Glucose 102 mg/dL (75-100) H 03/22/17 08:31 POC Glucose 95 (70-105) 03/23/17 09:35 Lactic Acid 0.80 mmol/L (0.7-2.0) 03/20/17 02:58 Calcium 8.6 mg/dL (8.4-10.2) 03/22/17 08:31 Troponin T < 0.010 ng/mL (0.00-0.029) 03/19/17 20:45 NT-Pro-B Natriuret Pep 21.08 pg/mL (0-900) 03/20/17 00:31
--- NOTE | 2017-03-23 12:58 | Progress Note ---
Assessment and Plan 52 y/o male admitted with PE 1. Remains on Heparin. may need to consider alternative oral anticoagulation. 2. Needs heme consult/ follow up for hypercoag work up 3. Wean FiO2 as tolerated. Will need walk test prior to discharge. Subjective Date of service: 03/23/17 Interval history: No acute events. Breathing is stable. INR is low. Objective Vital Signs - 12hr 03/23/17 03/23/17 03/23/17 03:00 06:08 09:34 Temperature 98.8 F 100.1 F H Pulse Rate 80 Pulse Rate [ 91 H Left Brachial] Pulse Rate [ 90 Right Radial] Respiratory 18 20 Rate Blood Pressure 125/58 114/57 [Right Arm] O2 Sat by Pulse 96 Oximetry Constitutional: no acute distress, alert Eyes: non-icteric ENT: oropharynx moist Neck: supple Effort: normal Ascultation: Bilateral: clear Percussion: Bilateral: not dull Tactile fremitus: Bilateral: normal Cardiovascular: regular rate and rhythm Gastrointestinal: normoactive bowel sounds Integumentary: normal Extremities: no edema CBC and BMP: 03/22/17 08:31 03/22/17 08:31 ABG, PT/INR, D-dimer: ABG POC ABG pH 7.400 (7.35-7.45) 03/19/17 23:07 POC ABG pCO2 36.5 (35-45) 03/19/17 23:07 POC ABG pO2 62 (80-105) L 03/19/17 23:07 POC ABG HCO3 22.6 03/19/17 23:07 POC ABG Total CO2 24 03/19/17 23:07 POC ABG O2 Sat 92 03/19/17 23:07 PT/INR, D-dimer PT 13.3 Sec. (12.2-14.9) 03/23/17 00:54 INR 0.96 (0.87-1.13) 03/23/17 00:54 D-Dimer 1083.62 ng/mlDDU (0-234) H 03/19/17 22:40 Abnormal lab findings: Abnormal Labs 03/20/17 03/20/17 03/20/17 02:58 11:13 23:22 Seg Neutrophils % PT 15.0 H APTT 37.9 H Heparin Anti-Xa Level 0.12 L Glucose POC Glucose 114 H 03/21/17 03/21/17 03/22/17 02:37 11:54 08:31 Seg Neutrophils % 70.4 H PT APTT Heparin Anti-Xa Level 0.28 L 0.26 L Glucose POC Glucose 03/22/17 03/23/17 08:31 00:25 Seg Neutrophils % PT APTT Heparin Anti-Xa Level Glucose 102 H POC Glucose 107 H
[2017-03-23] MEDS: COUMADIN PO SCH (18:22)
[2017-03-23] MEDS: MORPHINE IV PRN (20:37)
[2017-03-24 06:34] LABS: Hematocrit 38.2 % (35.5-45.6); Hemoglobin 12.6 gm/dl (11.8-15.2)
[2017-03-24 07:33] VITALS: BP 123/72
--- NOTE | 2017-03-24 07:59 | Progress Note ---
Assessment and Plan 52 y/o male admitted with PE 1. Remains on Heparin. may need to consider alternative oral anticoagulation if INR is still very low today.. 2. Needs heme consult/ follow up for hypercoag work up 3. Wean FiO2 as tolerated. Will need walk test prior to discharge. Subjective Date of service: 03/24/17 Interval history: No acute events. States that breathing feels well today. Remainder is negative. INR yesterday was less than 1.0 Objective Vital Signs - 12hr 03/23/17 03/23/17 03/24/17 20:37 23:33 00:00 Temperature 98.4 F Pulse Rate 101 H Pulse Rate [ 91 H Right Radial] Respiratory 18 18 Rate Blood Pressure 127/77 [Right Arm] O2 Sat by Pulse 97 Oximetry 03/24/17 03/24/17 04:00 07:27 Temperature 98.1 F 98.6 F Pulse Rate Pulse Rate [ 87 84 Right Radial] Respiratory 18 18 Rate Blood Pressure 121/65 123/72 [Right Arm] O2 Sat by Pulse 98 96 Oximetry Constitutional: no acute distress, alert Eyes: non-icteric ENT: oropharynx moist Neck: supple Effort: normal Ascultation: Bilateral: clear Percussion: Bilateral: not dull Tactile fremitus: Bilateral: normal Cardiovascular: regular rate and rhythm Gastrointestinal: normoactive bowel sounds Integumentary: normal Extremities: no edema CBC and BMP: 03/24/17 05:05 03/22/17 08:31 ABG, PT/INR, D-dimer: ABG POC ABG pH 7.400 (7.35-7.45) 03/19/17 23:07 POC ABG pCO2 36.5 (35-45) 03/19/17 23:07 POC ABG pO2 62 (80-105) L 03/19/17 23:07 POC ABG HCO3 22.6 03/19/17 23:07 POC ABG Total CO2 24 03/19/17 23:07 POC ABG O2 Sat 92 03/19/17 23:07 PT/INR, D-dimer PT 13.3 Sec. (12.2-14.9) 03/23/17 00:54 INR 0.96 (0.87-1.13) 03/23/17 00:54 D-Dimer 1083.62 ng/mlDDU (0-234) H 03/19/17 22:40 Abnormal lab findings: Abnormal Labs 03/20/17 03/20/17 03/20/17 02:58 11:13 23:22 Seg Neutrophils % PT 15.0 H APTT 37.9 H Heparin Anti-Xa Level 0.12 L Glucose POC Glucose 114 H 03/21/17 03/21/17 03/22/17 02:37 11:54 08:31 Seg Neutrophils % 70.4 H PT APTT Heparin Anti-Xa Level 0.28 L 0.26 L Glucose POC Glucose 03/22/17 03/23/17 03/23/17 08:31 00:25 21:07 Seg Neutrophils % PT APTT Heparin Anti-Xa Level Glucose 102 H POC Glucose 107 H 107 H
[2017-03-24 09:47] LABS: INR 1.48 (0.87-1.13)
[2017-03-24] MEDS: HEPARIN/ 0.45% NACL-25,000 UNIT/500 ML 25,000 UNIT/500 ML BAG IV SCH (09:53)
--- NOTE | 2017-03-24 11:01 | Discharge Summary ---
Providers - Providers Date of Admission: 03/20/17 02:29 Date of discharge: 03/24/17 Attending physician: CELESTE HAUSER 03/20/17 11:39 Consult to Physician [CONS] Routine Consulting Provider: ALEX CHICAS Reason For Exam: Pulmonary embolism Place consult to:: Notified:: Phone number called:: [phone] Was contact made?: Yes If yes, spoke with:: CARLOS Time called:: 12:30 03/21/17 10:23 Consult to Physician [CONS] Routine Consulting Provider: MOE DUVAL Reason For Exam: PE, is he a candidate for EKOS Place consult to:: Moe Duval Notified:: yes Phone number called:: overhead paged Was contact made?: Yes If yes, spoke with:: Olvin Time called:: 10:28 Primary care physician: [employer] Hospitalization Reason for admission: cp Condition: Stable Hospital course: 52 y/o male, admitted with chest pain. Patient was found to have bilateral subsegmental PE's. Pulmonary and vascular surgery consulted. Vascular surgery felt the patient was not a candidate for catheter directed thrombolytic therapy. Echocardiogram did not reveal a right ventricular strain. Patient states that he has never had PE or VTE before. However, his maternal uncle was recently diagnosed with PE as well. He currently feels better. Patient was maintained on Heparin Drip and initially treated with Coumadin. Unfortunately, INR did not respond to Coumadin. However, Patient received a 5 day overlap of IV heparin and will be transitioned to eliquis at discharge. Dopplers were negative for DVT. Dedicated discharge time 35 minutes. Disposition: SD-01 TO HOME OR SELFCARE Time spent for discharge: 35 - Discharge Diagnoses (1) Bilateral pulmonary embolism Status: Acute (2) Pulmonary emboli Status: Acute Qualifiers: Pulmonary embolism type: P Chronicity: C Acute cor pulmonale presence: A Core Measure Documentation - Palliative Care Palliative Care/ Comfort Measures: Not Applicable - Core Measures Any of the following diagnoses?: none - VTE Discharge Requirements Deep Vein Thrombosis/Pulmonary Embolism Present on Admission: Yes Has pt received <5 days of overlap therapy or INR<2.0: No Anticoagulant overlap therapy prescribed at discharge: No Contraindication No Overlap Therapy order at DC: Not Indicated Exam - Constitutional Vitals: Temp Pulse Resp BP Pulse Ox 98.6 F 84 18 123/72 95 03/24/17 07:27 03/24/17 07:27 03/24/17 07:27 03/24/17 07:27 03/24/17 08:58 General appearance: Present: no acute distress, well-nourished - EENT Eyes: Present: PERRL ENT: hearing intact, clear oral mucosa - Neck Neck: Present: supple, normal ROM - Respiratory Respiratory effort: normal Respiratory: bilateral: CTA - Cardiovascular Heart Sounds: Present: S1 & S2. Absent: rub, click - Extremities Extremities: pulses symmetrical, No edema Peripheral Pulses: within normal limits - Abdominal General gastrointestinal: Present: soft, non-tender, non-distended, normal bowel sounds Male genitourinary: Present: normal - Integumentary Integumentary: Present: clear, warm, dry - Musculoskeletal Musculoskeletal: gait normal, strength equal bilaterally - Psychiatric Psychiatric: appropriate mood/affect, intact judgment & insight - Neurologic Neurologic: CNII-XII intact, moves all extremities Plan Activity: no restrictions Weight Bearing Status: Weight Bear as Tolerated Diet: regular Additional Instructions: Hypercoagulable work up as OP with Dr. Braun Follow up with: PRIMARY CARE, [Primary Care Provider] - 3-5 Days JASMIN REYES DO [Staff Physician] - 7 Days Forms: Warfarin Discharge Instruction Prescriptions: Apixaban [Eliquis] 5 mg PO BID #60 tablet
[2017-03-24] MEDS: COUMADIN PO SCH (17:17)
== END 2017-03-24 19:16 | disposition home or self-care (01) | DRG 175 ==
LOC: ED 14:44 → 4A 03-20 02:29
PROVIDERS: ADMIT Internal Medicine; ATTEND Hospitalist
PROC: 4A033R1 Measurement of Arterial Saturation, Peripheral, Percutaneous Approach (ICD-10-PCS; principal; 2017-03-21)
DX: I26.99 Other pulmonary embolism without acute cor pulmonale (principal); J96.01 Acute respiratory failure with hypoxia; Z86.718 Personal history of other venous thrombosis and embolism; I25.2 Old myocardial infarction
CPT/HCPCS: 36415; 71020; 71275; 80048; 82140; 82803; 82962; 83880; 84484; 85014; 85018; 85025; 85049; 85379; 85520; 85610; 85730; 87040; 93005; 93010; 93306; 93970; 94760; 96361; 96365; 96375; J1644; J1885; J1956; J2270; J2405; J7030; Q9967

== ENCOUNTER 2017-04-02 20:02 | Emergency (ER) | payer OTHER ==
[2017-04-02] MEDS ORDERED: NORCO 5/325 PO ONE ×2 (20:43→23:43)
--- NOTE | 2017-04-02 20:51 | Cat Scan Report ---
FINAL REPORT EXAM: CT HEAD/BRAIN WO CON HISTORY: headache on blood thinner TECHNIQUE: Standard unenhanced CT of the head at 5.0 millimeter axial increments. PRIORS: None. FINDINGS: The ventricular system is normal in size and configuration. There is no evidence for parenchymal volume loss. There is no evidence for mass lesion, mass effect, midline shift, acute intracranial hemorrhage, or acute ischemia/ infarction. No evidence for acute skull fracture is seen. No abnormality in the overlying scalp soft tissues is seen. Visualized paranasal sinuses are clear. IMPRESSION: Negative CT of the head. No acute intracranial process noted.
--- NOTE | 2017-04-02 20:54 | Emergency Department Report ---
ED Headache HPI - General Chief Complaint: Headache Stated Complaint: HEADACHE Time Seen by Provider: 04/02/17 20:34 Source: patient Exam Limitations: no limitations - History of Present Illness Initial Comments: 52-year-old male with a history of received diagnosis bilateral pulmonary emboli currently on Eliquis presents to the hospital with complaints of left- sided posterior headache 3 days. Pain was gradual onset and patient initially felt that have to was too tight. However pain gradually worsened and described as an intermittent aching pain currently 9/10 intensity. Pain somewhat worse with palpation to scalp. Patient denies blurred vision, neck pain/stiffness, nausea, vomiting, fever, focal numbness, or weakness. Patient took Tylenol with some relief in symptoms. Allergies/Adverse Reactions: Allergies No Known Allergies Allergy (Verified 03/20/17 00:14) Home Medications: Ambulatory Orders Apixaban [Eliquis] 5 mg PO BID #60 tablet 03/24/17 Apixaban [Eliquis] 10 mg PO BID 7 Days 03/24/17 HYDROcodone/APAP 5-325 [Covel 5/325] 1 each PO Q6HR PRN #20 tablet 04/02/17 ED Review of Systems ROS: Stated complaint: HEADACHE Other details as noted in HPI Comment: All other systems reviewed and negative Other: Constitutional: No fevers chills or weight loss Eyes: No eye pain visual changes or discharge ENT: No ear pain or throat pain Neck: Denies pain Respiratory: Denies cough wheezing shortness of breath Cardiovascular: Denies chest pain, palpitations, syncope GI: Denies abdominal pain, nausea, vomiting, diarrhea : Denies dysuria Musculoskeletal: Denies back pain, joint swelling Skin: Denies rash, lesions, erythema Neurologic: Positive headache Psychiatric: Denies suicidal ideation, hallucinations ED Past Medical Hx - Past Medical History Previous Medical History?: Yes Hx Heart Attack/AMI: No (pt denies) Hx Congestive Heart Failure: No Hx Diabetes: No Hx Deep Vein Thrombosis: No (pt denies) Hx Pulmonary Embolism: Yes (bilateral PE diagnosed March 2017) Hx Asthma: No Hx COPD: No Additional medical history: Just discharged 1 week ago on Eliquis for bilateral PE's - Social History Smoking Status: Never Smoker - Medications Home Medications: Home Medications Medication Instructions Recorded Confirmed Last Taken Type Apixaban [Eliquis] 5 mg PO BID #60 tablet 03/24/17 Unknown Rx Apixaban [Eliquis] 10 mg PO BID 7 Days 03/24/17 Unknown Rx HYDROcodone/APAP 5-325 [Covel 1 each PO Q6HR PRN #20 tablet 04/02/17 Unknown Rx 5/325] ED Physical Exam - General Limitations: No Limitations - Other Other exam information: General: No limitations, patient is alert in no acute distress Head exam: Atraumatic, normocephalic Eyes exam: Normal appearance, pupils equal reactive to light, extraocular movements intact ENT: Moist mucous membrane, normal oropharynx Neck exam: Normal inspection, full range of motion, no meningismus nontender Respiratory exam: Clear to auscultation bilateral, no wheezes, rales, crackles Cardiovascular: Normal rate and rhythm, normal heart sounds Abdomen: Soft, nondistended, and nontender, with normal bowel sounds, no rebound, or guarding Extremity: Full range of motion normal inspection no deformity Back: Normal Inspection, full range of motion, no tenderness Neurologic: Alert, oriented x3, cranial nerves intact, no motor or sensory deficit Psychiatric: normal affect, normal mood Skin: Warm, dry, intact ED Course Vital Signs 04/02/17 04/02/17 04/02/17 20:15 20:44 20:45 Temperature 99.9 F H Pulse Rate 98 H 92 H Respiratory 20 23 20 Rate Blood Pressure 121/79 123/81 O2 Sat by Pulse 98 100 100 Oximetry - Reevaluation(s) Reevaluation #1: 04/02/17 20:54 Covel ordered for pain - Consultations Consultation #1: 04/02/17 23:[address] Cardona with hematology and elevated platelet count not high enough to cause current symptoms. Patient may follow-up ED Medical Decision Making - Lab Data Result diagrams: 04/02/17 22:34 04/02/17 20:42 Lab Results 04/02/17 04/02/17 04/02/17 Range/Units 20:42 20:42 20:42 WBC 6.4 (4.5-11.0) K/mm3 RBC 4.12 (3.65-5.03) M/mm3 Hgb 12.1 (11.8-15.2) gm/dl Hct 35.8 (35.5-45.6) % MCV 87 (84-94) fl MCH 29 (28-32) pg MCHC 34 (32-34) % RDW 13.8 (13.2-15.2) % Plt Count 649 H (140-440) K/mm3 Lymph % (Auto) (13.4-35.0) % [place] % (Auto) (0.0-7.3) % Eos % (Auto) (0.0-4.3) % Baso % (Auto) (0.0-1.8) % Lymph # (1.2-5.4) K/mm3 [place] # (0.0-0.8) K/mm3 Eos # (0.0-0.4) K/mm3 Baso # (0.0-0.1) K/mm3 Seg Neutrophils % (40.0-70.0) % Seg Neutrophils # (1.8-7.7) K/mm3 PT 15.1 H (12.2-14.9) Sec. INR 1.13 (0.87-1.13) APTT 32.9 (24.2-36.6) Sec. Sodium 138 (137-145) mmol/L Potassium 4.3 (3.6-5.0) mmol/L Chloride 98.0 (98-107) mmol/L Carbon Dioxide 24 (22-30) mmol/L Anion Gap 20 mmol/L BUN 13 (9-20) mg/dL Creatinine 1.3 (0.8-1.5) mg/dL Estimated GFR > 60 ml/min BUN/Creatinine Ratio 10.00 % Glucose 102 H (75-100) mg/dL Calcium 9.0 (8.4-10.2) mg/dL 04/02/17 Range/Units 22:34 WBC 6.1 (4.5-11.0) K/mm3 RBC 3.97 (3.65-5.03) M/mm3 Hgb 11.6 L (11.8-15.2) gm/dl Hct 35.1 L (35.5-45.6) % MCV 88 (84-94) fl MCH 29 (28-32) pg MCHC 33 (32-34) % RDW 13.9 (13.2-15.2) % Plt Count 589 H (140-440) K/mm3 Lymph % (Auto) 23.3 (13.4-35.0) % [place] % (Auto) 6.9 (0.0-7.3) % Eos % (Auto) 1.6 (0.0-4.3) % Baso % (Auto) 0.7 (0.0-1.8) % Lymph # 1.4 (1.2-5.4) K/mm3 [place] # 0.4 (0.0-0.8) K/mm3 Eos # 0.1 (0.0-0.4) K/mm3 Baso # 0.0 (0.0-0.1) K/mm3 Seg Neutrophils % 67.5 (40.0-70.0) % Seg Neutrophils # 4.1 (1.8-7.7) K/mm3 PT (12.2-14.9) Sec. INR (0.87-1.13) APTT (24.2-36.6) Sec. Sodium (137-145) mmol/L Potassium (3.6-5.0) mmol/L Chloride (98-107) mmol/L Carbon Dioxide (22-30) mmol/L Anion Gap mmol/L BUN (9-20) mg/dL Creatinine (0.8-1.5) mg/dL Estimated GFR ml/min BUN/Creatinine Ratio % Glucose (75-100) mg/dL Calcium (8.4-10.2) mg/dL - Radiology Data Radiology results: report reviewed (CT head: No acute findings) - Medical Decision Making Patient states his pain is improved after Covel not completely gone. Patient has some increase in level of his platelets count was could be due secondary to a liquids. Patient be encouraged to follow-up as outpatient for an VT team. Patient will prescribed Covel for pain as needed for headache. No signs of acute hemorrhage or meningismus in the ED - Differential Diagnosis headache, intracranial hemorrhage, tension headache, migraine Critical Care Time: No Critical care attestation.: If time is entered above; I have spent that time in minutes in the direct care of this critically ill patient, excluding procedure time. ED Disposition Clinical Impression: Headache, Anticoagulant long-term use, Elevated platelet count Disposition: TO HOME OR SELFCARE Is pt being admited?: No Does the pt Need Aspirin: No Condition: Stable Instructions: Acute Headache (ED) Additional Instructions: Take medications as needed for pain. Follow-up with your primary care doctor for further monitoring of the platelet counts since they are mildly elevated today (589). If Levels continue to increase you may need to see the equipment driver provided. Prescriptions: HYDROcodone/APAP 5-325 [Covel 5/325] 1 each PO Q6HR PRN #20 tablet PRN Reason: Pain Referrals: PRIMARY CARE, [Primary Care Provider] - 3-5 Days JENNIFER CARDONA MD [Staff Physician] - 3-5 Days (Assembler Fitter) Time of Disposition: 23:18
[2017-04-02 20:59] LABS: Hematocrit 35.8 % (35.5-45.6); Hemoglobin 12.1 gm/dl (11.8-15.2); Mean Corpuscular HGB Conc 34 % (32-34); Mean Corpuscular Hemoglobin 29 pg (28-32); Mean Corpuscular Volume 87 fl (84-94); Platelet Count 649 K/mm3 (140-440); Red Blood Count 4.12 M/mm3 (3.65-5.03); Red Cell Distribution Width 13.8 % (13.2-15.2); White Blood Count 6.4 K/mm3 (4.5-11.0)
[2017-04-02 21:02] VITALS: BP 123/81
[2017-04-02 21:10] LABS: INR 1.13 (0.87-1.13)
[2017-04-02 21:11] LABS: Partial Thromboplastin Time 32.9 Sec. (24.2-36.6)
[2017-04-02 21:14] LABS: Anion Gap 20 mmol/L; Blood Urea Nitrogen 13 mg/dL (9-20); Carbon Dioxide 24 mmol/L (22-30); Glucose 102 mg/dL (75-100); Potassium 4.3 mmol/L (3.6-5.0); Sodium 138 mmol/L (137-145)
[2017-04-02 22:59] LABS: Basophils % (Auto) 0.7 % (0.0-1.8); Eosinophils % (Auto) 1.6 % (0.0-4.3); Hematocrit 35.1 % (35.5-45.6); Hemoglobin 11.6 gm/dl (11.8-15.2); Mean Corpuscular HGB Conc 33 % (32-34); Mean Corpuscular Hemoglobin 29 pg (28-32); Mean Corpuscular Volume 88 fl (84-94); Platelet Count 589 K/mm3 (140-440); Red Blood Count 3.97 M/mm3 (3.65-5.03); Red Cell Distribution Width 13.9 % (13.2-15.2); White Blood Count 6.1 K/mm3 (4.5-11.0)
[2017-04-02] MEDS ORDERED: NORCO 5/325 ONE (23:39)
== END 2017-04-02 23:44 | disposition home or self-care (01) ==
LOC: ED 20:02
DX: R51 Headache (principal); D72.828 Other elevated white blood cell count; Z79.01 Long term (current) use of anticoagulants
CPT/HCPCS: 36415; 70450; 80048; 85025; 85027; 85610; 85730; 99284